=== PATIENT | male | born 1975 | race Caucasian/White ===

== ENCOUNTER 2016-09-16 19:25 | Emergency (ER) | payer OTHER ==
[~2016-09-16 19:25] MED LIST: AMOXICILLIN500 M1 PO; ANDROGEL75 GM TD; ASPIRIN PO; AUGMENTIN PO; AZITHROMYCIN250 MG PO; BACTROBAN22 GM TOP; CIPRO PO; CLEOCIN HCL300 M1 PO; FISH OIL 1,0001 CAP PO; GLIPIZIDE10 MG PO; GLUCOTROL PO; HCTZ PO; HUMALOG100 U/ML SUBQ; HYDROCHLOROTHIA25 MG PO; ILOTYCIN1 G1 OP; JANUVIA PO; KEFLEX250 M2 PO; LANTUS100 UNITS/ SUBQ; LASIX PO; LEVEMIR INJ; LEVEMIR100 UNITS/ SUBQ; LEXAPRO PO; LEXAPRO20 MG PO; LIPITOR PO; LISINOPRIL10 MG PO; LORTAB 10-5001 EACH PO; LORTAB 7.5-5001 TAB PO; METFORMIN PO; NEURONTIN300 MG PO; NITROSTAT0.4 MG SL; NORVASC PO; PERCOCET 10/6501 TA1 PO; PRAVACHOL PO; PREVACID PO; PROTONIX PO; ROBITUSSIN A-C-S1 ML PO; SEPTRA SUSPENS100 ML PO; TOPAMAX PO; VITAMIN B SHOT; VITAMIN D50000 UNIT PO; XANAX1 MG PO; XANAX2 MG PO; ZANTAC PO; [UNRECOGNIZED DRUG - OTHER] PO; [UNRECOGNIZED DRUG - REMARK]
== END 2016-09-16 20:08 | disposition home or self-care (01) ==
LOC: SED 19:25
DX: L02.414 Cutaneous abscess of left upper limb (principal); L02.413 Cutaneous abscess of right upper limb; I10 Essential (primary) hypertension; E11.9 Type 2 diabetes mellitus without complications; K21.9 Gastro-esophageal reflux disease without esophagitis; Z98.890 Other specified postprocedural states; Z23 Encounter for immunization
CPT/HCPCS: 90471; 90715; 99283

== ENCOUNTER 2016-09-19 11:35 | Emergency (ER) | payer OTHER ==
[2016-09-19] MEDS ORDERED: KEFLEX (11:39)
[2016-09-19] MEDS ORDERED: BACTRIM 400-801 EACH (11:39)
== END 2016-09-19 12:45 | disposition home or self-care (01) ==
LOC: SED 11:35
DX: L02.511 Cutaneous abscess of right hand (principal); L02.414 Cutaneous abscess of left upper limb; K21.9 Gastro-esophageal reflux disease without esophagitis; I10 Essential (primary) hypertension; I25.2 Old myocardial infarction; E11.9 Type 2 diabetes mellitus without complications; Z79.899 Other long term (current) drug therapy
CPT/HCPCS: 10061; 87070; 87077; 87186; 87205; 99283

== ENCOUNTER 2016-09-20 14:19 | Inpatient (IN) | payer OTHER ==
--- NOTE | ~2016-09-20 | CR142 ---
[facility] A Service of [facility] RADIOLOGY TEXT RESULTS PATIENT: STEPHANIA BERGMAN JR LOCATION: SED : 71 UNIT #: [id number] AGE: [address]: José Luis Vance MD SEX: M ORDER DR: [id number] [place] [address] [id number] E MR#: [id number] Acc #: [id number] NAME: STEPHANIA BERGMAN JR : 1975 SEX: M STUDY DATE/TIME: 09/20/2016 14:53 UNIT: SED ROOM: STUDY DESCRIPTION: CR Hand Min 3 Views Rt Attending Physician: José Luis Vance M.D. Ordering Physician: Nena Morales A.P.R.N. Primary Care Physician: Jason Landaverde M.D. MEDICAL IMAGING REPORT This report is preliminary unless electronic signature is present. EXAM Right hand 3 views HISTORY Cellulitis proximal first digit. Symptoms of swelling present for 18 days. Pain. COMPARISON STUDIES None. FINDINGS There is no fracture or dislocation. Soft tissue swelling along the dorsum of the hand. No underlying osseous abnormalities. IMPRESSION Soft tissue swelling of the dorsum of the hand and also of the thumb. No underlying osseous abnormality. No fracture. Dictated by... Harshal Aparicio M.D. THIS IS AN ELECTRONICALLY VERIFIED REPORT Harshal Aparicio M.D. at 09/21/2016 10:00 AM ARS/pcl TD: 09/20/2016 21:31 JOB #: [id number] MEDICAL IMAGING REPORT [facility] A Service of [facility] RADIOLOGY TEXT RESULTS PATIENT: STEPHANIA BERGMAN JR LOCATION: SED : 71 UNIT #: [id number] AGE: [address]: José Luis Vance MD SEX: M ORDER DR: Page 1 of 1
[~2016-09-20 14:19] MED LIST changes: +BACTRIM 400-801 EACH; +KEFLEX
[2016-09-20 15:26] LABS: BASOPHIL# 0.1 X10e3 (0-0.3); BASOPHIL% 0.8 % (0-2.5); DIFF IND NO; EOSINOPHIL# 0.2 X10e3 (0-0.7); EOSINOPHIL% 2.5 % (0.0-7.0); HEMATOCRIT 44.3 % (38.0-50.0); HEMOGLOBIN 14.6 gm/dL (13.0-16.0); LYMPHOCYTE# 2.4 X10e3 (1.0-3.5); LYMPHOCYTE% 27.9 % (17.0-45.0); MEAN CELL VOLUME 81.7 FL (83-96); MEAN CORPUSCULAR HEMOGLOBIN 26.8 PG (28-34); MEAN CORPUSCULAR HGB CONC 32.8 g/dL (30-36); MONOCYTE# 0.6 X10e3 (0-1.0); MONOCYTE% 7.2 % (3.0-12.0); NEUTROPHIL# 5.3 X10e3 (1.5-7.1); NEUTROPHIL% 61.6 % (40-75); PLATELET COUNT 307 X10e3 (140-420); RED BLOOD COUNT 5.43 X10e (3.90-5.60); RED CELL DISTRIBUTION WIDTH 14.5 % (11.0-15.5); WHITE BLOOD COUNT 8.7 X10e3 (4.0-10.5)
[2016-09-20 15:41] LABS: ALBUMIN SERUM 4.1 g/dL (3.5-5.0); BILIRUBIN,TOTAL 0.4 mg/dL (0.2-2.0); CALCIUM SERUM 8.6 mg/dL (8.4-10.2); GLOM FILT RATE Estimated 91.8 mL/min (>60); PROTEIN TOTAL SERUM 7.6 g/dL (6.0-8.3)
[2016-09-21] MEDS ORDERED: ZYVOX PO (17:23)
== END 2016-09-21 18:15 | disposition home or self-care (01) | DRG 603 ==
LOC: SED 14:19 → C2A 19:15
PROVIDERS: Nurse Practitioner
DX: L03.114 Cellulitis of left upper limb (principal); E10.65 Type 1 diabetes mellitus with hyperglycemia; I10 Essential (primary) hypertension; L02.511 Cutaneous abscess of right hand; Z68.41 Body mass index [BMI] 40.0-44.9, adult; B95.62 Methicillin resistant Staphylococcus aureus infection as the cause of diseases classified elsewhere; L03.011 Cellulitis of right finger; L02.414 Cutaneous abscess of left upper limb; Z79.4 Long term (current) use of insulin; E78.5 Hyperlipidemia, unspecified; F32.9 Major depressive disorder, single episode, unspecified; F41.9 Anxiety disorder, unspecified; K21.9 Gastro-esophageal reflux disease without esophagitis; E66.01 Morbid (severe) obesity due to excess calories; G47.33 Obstructive sleep apnea (adult) (pediatric); Z79.82 Long term (current) use of aspirin
CPT/HCPCS: 36415; 73130; 80048; 80053; 82947; 83036; 85025; 87040; 96365; 96375; 99284; J1815; J3370

== ENCOUNTER 2016-10-16 21:32 | Emergency (ER) | payer OTHER ==
[~2016-10-16] VITALS: Ht 180.3 cm; Wt 131.5 kg
[~2016-10-16 21:32] MED LIST changes: +ZYVOX PO
== END 2016-10-16 23:35 | disposition home or self-care (01) ==
LOC: SED 21:32
DX: L02.413 Cutaneous abscess of right upper limb (principal); F41.9 Anxiety disorder, unspecified; K21.9 Gastro-esophageal reflux disease without esophagitis; I10 Essential (primary) hypertension; E78.5 Hyperlipidemia, unspecified; I25.2 Old myocardial infarction
CPT/HCPCS: 10060; 87070; 87077; 87186; 87205; 99282